=== PATIENT | female | born 1970 | race Caucasian/White ===

== ENCOUNTER 2023-10-14 20:11 | Emergency (ER) | payer OTHER, SELFPAY ==
[2023-10-14 20:18] VITALS: BP 167/88
[2023-10-14 20:44] LABS: % Basophils 0.4 % (0-2); % Eosinophils 0.1 % (0-6); % Immature Granulocytes 0.4 % (0-0.5); % Lymphocytes 7.7 % (20.5-51.1); % Monocytes 5.8 % (1.7-9.3); % Neutrophils 85.6 % (42.2-75.2); Absolute Basophils 0.1 10^3/uL (0-0.2); Absolute Immature Granulocytes 0.1 10^3/uL (0-0.05); Absolute Lymphocytes 1.1 10^3/uL (1.2-3.4); Absolute Monocytes 0.8 10^3/uL (0.1-0.6); Absolute Neutrophils 12.1 10^3/uL (1.4-6.5); Hematocrit 38.5 % (37.0-47.0); Mean Corp Hgb Conc. 33.8 g/dL (33.0-37.0); Mean Corpuscular Hgb 31.6 pg (27.0-31.0); Mean Corpuscular Volume 93.7 fL (81.0-99.0); Mean Platelet Volume 10.4 fL (7.4-10.4); Nucleated Red Blood Cells % 0 %; Platelet Count 284 10^3/uL (130-400); Red Blood Cell Count 4.11 10^6/uL (4.20-5.40); Red Cell Dist. Width 12.4 % (11.5-14.5); White Blood Cell Count 14.1 10^3/uL (4.8-10.8)
[2023-10-14 20:57] LABS: ALT (SGPT) 21 U/L (0-35); AST (SGOT) 23 U/L (14-36); Alkaline Phosphatase 80 U/L (38-126); Blood Urea Nitrogen 14 mg/dl (7-17); Calcium 10.1 mg/dl (8.4-10.2); Carbon Dioxide 22 mmol/L (22-30); Chloride 104 mmol/L (98-107); Glucose 122 mg/dl (70-99); Potassium 4.2 mmol/L (3.5-5.1); Sodium 137 mmol/L (135-145); Total Protein 7.8 g/dl (6.3-8.2); eGFR > 60.00
--- NOTE | 2023-10-14 21:56 | ED.GENMED ---
History of Present Illness
<Yudith Sears PA-C - Last Filed: 10/15/23 01:13>
General
Chief Complaint: Breathing Problem
Source: patient
Exam Limitations: none
Time Seen by Provider: 10/14/23 21:36
Nursing documentation reviewed up to this point in time: agreed with
History of Present Illness
History of Present Illness:
Patient is a 53-year-old female with history of IBD on [place] presenting for evaluation of chest discomfort. Patient states symptoms started acutely yesterday afternoon while she was working. She endorses sharp pain in her chest and upper back.
Pain is worse with deep inspiration and exertion. Patient believes pain to be much worse with movement. She is more comfortable lying down and notices increase in the discomfort with standing. She also endorses some mild shortness of breath.
Patient did note some chills and fever at home but has not been afebrile both here and at urgent care. Patient also mentions some mild nausea and abdominal discomfort. No changes in bowel patterns or urinary symptoms
Patient denies any pain in her lower extremities. Patient denies any personal or family history of blood clots or clotting disorders. No recent travel or surgeries
Patient did recently play a long tennis match which she does not typically do and is wondering if symptoms may be related to this.
Past History
<Yudith Sears PA-C - Last Filed: 10/15/23 01:13>
Past History
ED Past Medical History: None
ED Past Surgical History: None
Social History
Tobacco: Non-smoker
Review of Systems
<Yudith Sears PA-C - Last Filed: 10/15/23 01:13>
Review of Systems
Allergies reviewed?: Yes
All Other Systems: ROS reviewed and negative except as documented in HPI and ROS
Phy Exam
<Yudtih Sears PA-C - Last Filed: 10/15/23 01:13>
Physical Exam
Physical Exam:
Vitals: Patient's vital signs are stable. Afebrile
General: Patient is well appearing, no acute distress. Nontoxic-appearing
Skin: Warm and dry, no rashes or lesions
Head: Normocephalic, atraumatic
Eyes: Sclera nonicteric. EOMs intact. No nystagmus.
Throat: Protecting airway
Neck: Normal ROM, no cervical spine tenderness, no meningismus. Trachea midline
Cardiac: Regular rate and rhythm, no murmurs, rubs. Anterior chest wall nontender to palpation. No bruising or crepitus
Pulm: Normal respiratory effort, no wheezes, rales, rhonchi heard on exam. No reproducible tenderness to upper back. No midline spinal tenderness
Abdomen: Abdomen soft. No abdominal tenderness. No tenderness in right upper quadrant. Negative Salinas sign
Extremities: No evidence of cyanosis or edema. Negative Homans' sign bilaterally. No erythema, warmth, tenderness of bilateral calves. Distal pulses
Neuro: AAOx3. CN II-XII intact. No focal neurologic deficits.
Psychiatric: Normal affect.
Course
<Yudith Sears PA-C - Last Filed: 10/15/23 01:13>
Orders/Labs/Results
Orders:
Orders
10/14/23 20:21
EKG [Electrocardiogram (*1)] Urgent
Reason for Study: Chest Pain
EKG- Treatment ONCE
Chest [CR Chest - 2 Views ] Urgent
Comment:
Reason For Exam: SOB/PAIN
10/14/23 20:28
CBC/With Diff [Complete Blood Count/With Diff] Urgent
CMP [Comprehensive Metabolic Panel] Urgent
Troponin I Urgent
10/14/23 22:07
D-Dimer Urgent
10/14/23 22:39
CT Chest Pe Study Urgent
Comment:
Reason For Exam: pleuritic cp
10/14/23 23:58
Troponin I Urgent
Abnormal Lab Results
10/14/23 10/14/23
20:28 22:07
WBC 14.1 H 10^3/uL
(4.8-10.8)
RBC 4.11 L 10^6/uL
(4.20-5.40)
MCH 31.6 H pg
(27.0-31.0)
Abs Immat Gran (auto) 0.1 H 10^3/uL
(0-0.05)
Absolute Neuts (auto) 12.1 H 10^3/uL
(1.4-6.5)
Absolute Lymphs (auto) 1.1 L 10^3/uL
(1.2-3.4)
Absolute Monos (auto) 0.8 H 10^3/uL
(0.1-0.6)
Neutrophils % 85.6 H %
(42.2-75.2)
Lymphocytes % 7.7 L %
(20.5-51.1)
D-Dimer 0.77 H ug/mlFEU
(0.00-0.50)
Glucose 122 H mg/dl
(70-99)
Total Bilirubin 3.0 H mg/dl
(0.2-1.3)
10/14/23 20:28
10/14/23 20:28
Vital Signs
Initial and Last Documented VS:
Initial Vital Signs
Temp Pulse Resp BP Pulse Ox
98.4 F 85 17 167/88 100
10/14/23 20:18 10/14/23 20:18 10/14/23 20:18 10/14/23 20:18 10/14/23 20:18
Last Documented Vital Signs
Temp Pulse Resp BP Pulse Ox
98.4 F 78 12 143/85 100
10/14/23 20:18 10/14/23 23:31 10/14/23 23:31 10/14/23 23:30 10/14/23 20:18
<Loy Mcneal, DO - Last Filed: 10/14/23 23:49>
Orders/Labs/Results
Orders:
Orders
10/14/23 20:21
EKG [Electrocardiogram (*1)] Urgent
Reason for Study: Chest Pain
EKG- Treatment ONCE
Chest [CR Chest - 2 Views ] Urgent
Comment:
Reason For Exam: SOB/PAIN
10/14/23 20:28
CBC/With Diff [Complete Blood Count/With Diff] Urgent
CMP [Comprehensive Metabolic Panel] Urgent
Troponin I Urgent
10/14/23 22:07
D-Dimer Urgent
10/14/23 22:39
CT Chest Pe Study Urgent
Comment:
Reason For Exam: pleuritic cp
10/14/23 23:58
Troponin I Urgent
Abnormal Lab Results
10/14/23 10/14/23
20:28 22:07
WBC 14.1 H 10^3/uL
(4.8-10.8)
RBC 4.11 L 10^6/uL
(4.20-5.40)
MCH 31.6 H pg
(27.0-31.0)
Abs Immat Gran (auto) 0.1 H 10^3/uL
(0-0.05)
Absolute Neuts (auto) 12.1 H 10^3/uL
(1.4-6.5)
Absolute Lymphs (auto) 1.1 L 10^3/uL
(1.2-3.4)
Absolute Monos (auto) 0.8 H 10^3/uL
(0.1-0.6)
Neutrophils % 85.6 H %
(42.2-75.2)
Lymphocytes % 7.7 L %
(20.5-51.1)
D-Dimer 0.77 H ug/mlFEU
(0.00-0.50)
Glucose 122 H mg/dl
(70-99)
Total Bilirubin 3.0 H mg/dl
(0.2-1.3)
10/14/23 20:28
10/14/23 20:28
Vital Signs
Initial and Last Documented VS:
Initial Vital Signs
Temp Pulse Resp BP Pulse Ox
98.4 F 85 17 167/88 100
10/14/23 20:18 10/14/23 20:18 10/14/23 20:18 10/14/23 20:18 10/14/23 20:18
Last Documented Vital Signs
Temp Pulse Resp BP Pulse Ox
98.4 F 78 12 143/85 100
10/14/23 20:18 10/14/23 23:31 10/14/23 23:31 10/14/23 23:30 10/14/23 20:18
<Yudith Sears PA-C - Last Filed: 10/15/23 01:13>
MDM/Problems Addressed
Differential Diagnosis Includes:
Not limited to: Muscular strain, pericarditis, myocarditis, bronchitis, asthma, PE
Chronic conditions affecting care:
Crohn's disease
Acute Exacerbation and/or Progression of Chronic Illness:
N/A
<Yudith Sears PA-C - Last Filed: 10/15/23 01:13>
*Radiology
Radiology exam reviewed: preliminary read by ED provider and radiology read reviewed
*Pulse Oximetry
Patient hypoxic: no
*EKG
Interpreted by ED Provider?: Yes
EKG Intrepretation Date: 10/15/23
Interpretation: normal
Comparison EKG: no comparison EKG present
Heart Rate: 83
Rate: normal
Rhythm: sinus
Ischemia: no ischemia
*Want Ad Receiver Interpretation
Rate: normal
Interpretation: normal
Heart Rate: 76
Rhythm: sinus
*Critical Care Note
Total Time (30-74mins, 75-104mins- exclusive of procedures): Not Applicable
ED Attending Note
<Yudith Sears PA-C - Last Filed: 10/15/23 01:13>
-
Portions of this chart may have been created with voice recognition software.� Occasional wrong word or��sound alike� substitutions may have occurred due to the inherent limitations of voice recognition software.
<Loy Mcneal DO - Last Filed: 10/14/23 23:49>
ED Attending Note
Patient seen and examined by attending physician: Yes
I performed the substantive portion of visit, reviewed & personally made and approve the management plan that is documented in note by myself or FRANKLIN.: Yes
ED Attending Note:
53-year-old female who presents with some pain in her upper chest and toward her back. Patient also felt she had had a little bit of a fever. Symptoms started yesterday. She did recent play a tennis match which she does not normally do and
wondered if maybe it could be related. Patient states that she feels a little better on my exam. No cough. She states that just sort of hurts when she breathes. Pain is slightly worse when she stands up and little better when she lays flat.
Exam: Heart regular, no murmur, no rub, lungs clear. No lower extremity edema. Assessment plan: Rule out PE. EKG noted. Repeat troponin.
Discharge Plan
Departure
Prescriptions:
No Action
indomethacin 50 MG capsule
50 mg PO TID Qty: 20 0RF
Referrals:
River Royal DO [Family Provider] -
Interventions
Interventions:
*Risk Screen - Suicide Last Done: 10/14/23 20:18
*General Assessment Last Done: 10/14/23 20:18
*Neglect/Abuse Screening Last Done: 10/14/23 20:18
ED- Fall Risk Assessment Last Done: 10/14/23 22:18
ED- Cardiac Assessment Last Done: 10/14/23 22:18
ED- Pulmonary Assessment Last Done: 10/14/23 22:18
Discharge Date and Time
Print Language: THAI
[2023-10-14 22:07] VITALS: BMI 21.5
[2023-10-14 22:32] LABS: D-Dimer 0.77 ug/mlFEU (0.00-0.50)
[2023-10-14 23:30] VITALS: BP 143/85
[2023-10-15] VITALS: BP 138/88
[2023-10-15 00:38] LABS: Troponin I 0.026 ng/ml
[2023-10-15 01:00] VITALS: BP 133/81
== END 2023-10-15 01:27 | disposition home or self-care (01) ==
LOC: EMR 20:11
PROVIDERS: Physician Assistant; EMERGENCY PHYSICIAN Emergency Medicine; FAMILY PHYSICIAN Family Medicine
DX: R07.89 Other chest pain (principal)
CPT/HCPCS: 99284; 71046; 71275; 80053; 84484; 85025; 85379; 93005; Q9967